=== PATIENT | female | born 1990 | race Caucasian/White ===

== ENCOUNTER 2025-05-10 09:18 | Outpatient (CLI) | payer OTHER | END 2025-05-10 09:19 | disposition home or self-care (01) | LOC: CSHSLEEP 09:18 | DX: G47.33 Obstructive sleep apnea (adult) (pediatric) (principal); R53.83 Other fatigue; F32.A Depression, unspecified; F41.9 Anxiety disorder, unspecified; E66.9 Obesity, unspecified; Z68.44 Body mass index [BMI] 60.0-69.9, adult; R06.83 Snoring | CPT/HCPCS: 95800 ==